=== PATIENT | male | born 1925 | race Asian ===

== ENCOUNTER 2016-05-25 14:35 | Inpatient (IN) | payer OTHER ==
[~2016-05-25] VITALS: Ht 175.3 cm; Wt 89.5 kg
[~2016-05-25 14:35] MED LIST: ARICEPT5 MG PO; BACO TOP; BETHANECHOL PO; COZAAR100 MG PO; FLO4 PO; GLIPIZIDE2.5 M1 PO; HIBICLENS118 ML TOP; HYDROCHLOROTH12.5 M2 PO; LAC PO; LEVAQUIN500 MG PO; METOPROLOL TART25 M1 PO; POTASSIUM CHLO20 ME1 PO; PROS5 PO; TORADOL10 MG PO; XARELTO10 M1 PO; ZOC20 PO
[2016-05-25 15:56] LABS: BASOPHIL % 0.2 % (0-2)
[2016-05-25 15:58] LABS: RED CELL DISTRIBUTION WIDTH 15.2 % (11.5-14.5)
[2016-05-25 15:59] LABS: CALCIUM 8.8 mg/dL (8.5-10.1); CARBON DIOXIDE 24.5 mmol/L (21-32); CHLORIDE SERUM 101 mmol/L (98-107); CREATININE SERUM 1.3 mg/dL (0.7-1.3); GLUCOSE SERUM 132 mg/dL (74-106); POTASSIUM SERUM 3.7 mmol/L (3.5-5.1); SODIUM SERUM 137 mmol/L (136-145)
[2016-05-25 16:01] LABS: PLATELET COUNT 81 x10^3mcL (130-400)
[2016-05-25 16:04] LABS: ALBUMIN 3.5 g/dL (3.4-5.0); ALKALINE PHOSPHATASE 63 U/L (46-116); ALT/SGPT 22 U/L (16-63); AST/SGOT 31 U/L (15-37); BILIRUBIN TOTAL 3.6 mg/dL (0.20-1.00); CHOLESTEROL 180 mg/dL (<200); TOTAL PROTEIN, SERUM 7.8 g/dL (6.4-8.2)
[2016-05-25 16:06] LABS: HDL CHOLESTEROL 73 mg/dL (40-60)
[2016-05-25 18:35] LABS: UA SPECIFIC GRAVITY >=1.030 (1.005-1.035); microscopic required? YES; urine erythrocyte 3+ (NEGATIVE)
[2016-05-25] MEDS ORDERED: DONEPEZIL HYDROC5 M2 PO (18:43)
[2016-05-25] MEDS ORDERED: COZAAR100 MG PO (18:43)
[2016-05-25] MEDS ORDERED: FINASTERIDE5 M1 PO (18:43)
[2016-05-25] MEDS ORDERED: TOPROL XL25 MG PO (18:44)
[2016-05-25] MEDS ORDERED: FLO4 PO (18:44)
[2016-05-25] MEDS ORDERED: XARELTO10 M1 PO (18:44)
[2016-05-25] MEDS ORDERED: URE25 PO (18:45)
[2016-05-25] MEDS ORDERED: GLIPIZIDE ER2.5 M1 PO (18:45)
[2016-05-25] MEDS ORDERED: CIPRO250 MG PO (18:46)
[2016-05-25 20:33] VITALS: BP 167/83
[2016-05-25 21:52] LABS: T3 TOTAL 0.85 ng/mL
[2016-05-25 21:56] LABS: CHOLESTEROL/HDL RATIO 2.7
[2016-05-25 22:01] LABS: FREE T4 1.65 ng/dL (0.76-1.46); FREE THYROXINE INDEX 3.4 ug/dL (1.4-4.5); T4(THYROXINE) 9.1 ug/dL (4.7-13.3)
[2016-05-26 05:51] VITALS: BP 151/74
[2016-05-26 07:08] LABS: BASOPHIL % 0.1 % (0-2)
[2016-05-26 07:11] LABS: PLATELET COUNT 77 x10^3mcL (130-400); RED CELL DISTRIBUTION WIDTH 15.9 % (11.5-14.5)
[2016-05-26 07:39] LABS: CALCIUM 8.3 mg/dL (8.5-10.1); CARBON DIOXIDE 25.6 mmol/L (21-32); CHLORIDE SERUM 103 mmol/L (98-107); CREATININE SERUM 1.3 mg/dL (0.7-1.3); GLUCOSE SERUM 81 mg/dL (74-106); MAGNESIUM 1.9 mg/dL (1.8-2.4); PHOSPHOROUS 3.4 mg/dL (2.5-4.9); POTASSIUM SERUM 3.6 mmol/L (3.5-5.1); SODIUM SERUM 139 mmol/L (136-145)
[2016-05-26 09:59] VITALS: BP 155/78
[2016-05-26 13:10] VITALS: BP 116/77
[2016-05-26 17:23] VITALS: BP 141/75
[2016-05-26 22:05] VITALS: BP 171/83
[2016-05-27 06:19] VITALS: BP 148/69
[2016-05-27 06:23] LABS: BASOPHIL % 0.1 % (0-2)
[2016-05-27 06:32] LABS: CARBON DIOXIDE 24.3 mmol/L (21-32); CHLORIDE SERUM 102 mmol/L (98-107); CREATININE SERUM 1.2 mg/dL (0.7-1.3); GLUCOSE SERUM 88 mg/dL (74-106); POTASSIUM SERUM 3.9 mmol/L (3.5-5.1); SODIUM SERUM 136 mmol/L (136-145)
[2016-05-27 06:35] LABS: ALBUMIN 2.9 g/dL (3.4-5.0)
[2016-05-27 06:50] LABS: PLATELET COUNT 89 x10^3mcL (130-400); RED CELL DISTRIBUTION WIDTH 15.1 % (11.5-14.5)
[2016-05-27 10:10] VITALS: BP 180/81
[2016-05-27 11:08] VITALS: BP 146/73
[2016-05-27 13:54] VITALS: BP 133/73
[2016-05-27 17:47] VITALS: BP 149/82
[2016-05-27 21:30] VITALS: BP 140/72
[2016-05-28 05:48] VITALS: BP 158/71
[2016-05-28 06:14] LABS: BASOPHIL % 0.3 % (0-2)
[2016-05-28 06:19] LABS: ALKALINE PHOSPHATASE 45 U/L (46-116); ALT/SGPT 16 U/L (16-63); AST/SGOT 28 U/L (15-37); BILIRUBIN TOTAL 1.5 mg/dL (0.20-1.00); CALCIUM 7.7 mg/dL (8.5-10.1); CARBON DIOXIDE 25.7 mmol/L (21-32); CHLORIDE SERUM 102 mmol/L (98-107); CREATININE SERUM 1.2 mg/dL (0.7-1.3); GLUCOSE SERUM 80 mg/dL (74-106); POTASSIUM SERUM 3.6 mmol/L (3.5-5.1); SODIUM SERUM 137 mmol/L (136-145); TOTAL PROTEIN, SERUM 6.9 g/dL (6.4-8.2)
[2016-05-28 06:28] LABS: PLATELET COUNT 94 x10^3mcL (130-400)
[2016-05-28 06:33] LABS: ALBUMIN 2.8 g/dL (3.4-5.0)
[2016-05-28 08:30] VITALS: Ht 175.3 cm; Wt 89.5 kg
[2016-05-28 09:55] VITALS: BP 137/80
[2016-05-28 14:14] VITALS: BP 148/68
[2016-05-28 17:25] VITALS: BP 162/75
[2016-05-28 17:30] VITALS: BP 156/75
[2016-05-28 20:25] VITALS: BP 152/90
[2016-05-29 05:32] VITALS: BP 163/72
[2016-05-29 06:17] LABS: CALCIUM 8.1 mg/dL (8.5-10.1); CARBON DIOXIDE 26.8 mmol/L (21-32); CHLORIDE SERUM 99 mmol/L (98-107); GLUCOSE SERUM 96 mg/dL (74-106); POTASSIUM SERUM 3.5 mmol/L (3.5-5.1); SODIUM SERUM 132 mmol/L (136-145)
[2016-05-29 06:27] LABS: BASOPHIL % 0.3 % (0-2); RED CELL DISTRIBUTION WIDTH 14.4 % (11.5-14.5)
[2016-05-29 06:28] LABS: PLATELET COUNT 85 x10^3mcL (130-400)
[2016-05-29 06:40] VITALS: BP 107/77
[2016-05-29 08:25] VITALS: BP 151/64
[2016-05-29 15:25] VITALS: BP 151/64
[2016-05-29] MEDS ORDERED: APAP/HYDROCODON1 T13 PO (15:45)
== END 2016-05-29 18:00 | DRG 64 ==
LOC: ED 14:35 → DU 18:49 → MU 05-26 15:46 → DU 05-26 23:09 → MU 05-28 11:46
PROVIDERS: Emergency Medicine; Family Medicine; ADMIT Family Medicine
DX: I63.9 Cerebral infarction, unspecified (principal); N17.0 Acute kidney failure with tubular necrosis; I50.43 Acute on chronic combined systolic (congestive) and diastolic (congestive) heart failure; S32.019A Unspecified fracture of first lumbar vertebra, initial encounter for closed fracture; M62.82 Rhabdomyolysis; E44.0 Moderate protein-calorie malnutrition; I11.0 Hypertensive heart disease with heart failure; E11.51 Type 2 diabetes mellitus with diabetic peripheral angiopathy without gangrene; I16.0 Hypertensive urgency; I48.91 Unspecified atrial fibrillation; E83.42 Hypomagnesemia; E78.5 Hyperlipidemia, unspecified; G30.9 Alzheimer's disease, unspecified; F02.80 Dementia in other diseases classified elsewhere, unspecified severity, without behavioral disturbance, psychotic disturbance, mood disturbance, and anxiety; N40.0 Benign prostatic hyperplasia without lower urinary tract symptoms; I71.4 Abdominal aortic aneurysm, without rupture; M47.892 Other spondylosis, cervical region; Z79.01 Long term (current) use of anticoagulants; W18.39XA Other fall on same level, initial encounter; Z91.81 History of falling; Y93.89 Activity, other specified; Y92.092 Bedroom in other non-institutional residence as the place of occurrence of the external cause; Z68.29 Body mass index [BMI] 29.0-29.9, adult; Z87.891 Personal history of nicotine dependence; Z79.84 Long term (current) use of oral hypoglycemic drugs
CPT/HCPCS: 82962; 83880; 84439; 94150; 97110-GP; 97116-GP; 97530-GP; J0696; J1100; J2270; J2405; J3010; J3490; J7030; Q0092